=== PATIENT | female | born 1970 | race Caucasian/White ===

== ENCOUNTER 2017-10-18 13:54 | Emergency (ER) | payer BC ==
[2017-10-18 14:05] VITALS: BP 128/81
--- NOTE | 2017-10-18 14:31 | UC ---
Shoulder Pain HPI - HPI Summary HPI Summary: 47 y/o female presents to the urgent care c/o left shoulder pain w/ a bruise s/ p falling backwards 2 days ago. Pt reports she fell backwards in a screen porch. Pain is 8/10 sharp w/ decrease ROM and posterior side of shoulder w/ a bruise from the porch railing. Pt has taking Ibuprofen/Tylenol PO to alleviate symptoms. LMP:09/18/2017. Pt denies numbness and tingling sensation over the left arm, fever, SOB, cehst pain,abdominal pain, N/V/D. - History of Current Complaint Chief Complaint: UCUpperExtremity Stated Complaint: SHOULDER INJURY Time Seen by Provider: 10/18/17 14:26 Hx Obtained From: Patient Hx Last Menstrual Period: 09/16/17 ?: No - Pt declines prenanacy test Onset/Duration: Sudden Onset, Lasting Days - 4 days, Still Present, Worse Since - yesterday Timing: Constant Severity Initially: Moderate Severity Currently: Moderate Location Of Pain: Is Discrete @ - left shoulder Pain Intensity: 9 Pain Scale Used: 0-10 Numeric Character: Sharp, Throbbing Aggravating Factor(s): Movement, Lifting, Abduction Alleviating Factor(s): Rest, Ice, OTC Meds Associated Signs And Symptoms: Positive: Bruising - posterior shoulder. Negative: Swelling, Numbness/Tingling Related History: Dominant Hand Right - Risk Factors Non-Orthopedic Risk Factor: Negative DVT Risk Factors: Negative Septic Arthritis Risk Factor: Negative - Allergies/Home Medications Allergies/Adverse Reactions: Allergies Allergy/AdvReac Type Severity Reaction Status Date / Time aspirin Allergy Rash Verified 10/18/17 14:06 erythromycin base Allergy Rash Verified 10/18/17 14:06 sulfamethoxazole Allergy Hives Verified 10/18/17 14:06 [From Bactrim] trimethoprim [From Bactrim] Allergy Hives Verified 10/18/17 14:06 PMH/Surg Hx/FS Hx/Imm Hx Previously Healthy: Yes Other Endocrine History: Lupus, RA Cardiovascular History: Cardiac Disease GI/ History: Gastroesophageal Reflux Other History Of: Anticoagulant Therapy - pradexa - Surgical History Surgical History: Yes Surgery Procedure, Year, and Place: Surgery on left ankle ~ 2006 ablasions 2 - Family History Known Family History: Positive: Cardiac Disease - Social History Occupation: Employed Full-time Lives: With Family Alcohol Use: None Substance Use Type: None Smoking Status (MU): Smoker, Current Status Unknown - Immunization History Most Recent Tetanus Shot: July 2011 Review of Systems Constitutional: Negative Skin: Bruising - left shoulder s/p fall Eyes: Negative ENT: Negative Respiratory: Negative Cardiovascular: Negative Gastrointestinal: Negative Genitourinary: Negative Motor: Negative Neurovascular: Negative Musculoskeletal: Decreased ROM - left shoulder, Other: - left shoulder pain Neurological: Negative Psychological: Negative Is Patient Immunocompromised?: No All Other Systems Reviewed And Are Negative: Yes Physical Exam - Summary Physical Exam Summary: Vital Signs Reviewed: Yes GENERAL: Well-Appearing, No Pain Distress, Well-Nourished - female w/o any apparent pain distress Eyes: Positive: Conjunctiva Clear - PERRL,EOMI ENT: Positive: Normal ENT inspection, Hearing grossly normal, Pharyngeal erythema - mild, Nasal drainage - clear, Uvula midline Neck: Positive: Supple, Nontender, No Lymphadenopathy Respiratory: Positive: Chest non-tender, Lungs clear, Normal breath sounds, No respiratory distress Cardiovascular: Positive: RRR, No Murmur, Pulses Normal, Brisk Capillary Refill Abdomen Description: Positive: Nontender, No Organomegaly, Soft. Negative: CVA Tenderness (R), CVA Tenderness (L) Bowel Sounds: Positive: Present Musculoskeletal: LF shoulder: The L shoulder is with/without obvious asymmetry or deformity when compared to the R shoulder. posterior shoulder w/ ecchymosis and bruising, no crepitus. No bony deformity or prominence of humeral head. No erythema, warmth. No Point Tenderness to palpation over the clavicle, or scapula. positive tenderness over Acromioclavicular joint and humeral head with mild swelling, NT to palpation of the bicipital groove . NT to palpation of the muscles of the sternocleidomastoid, pectoralis, biceps/triceps , deltoid, trapezius, . Limited ROM due to pain especially in adduction and abduction.on both passive and active, internal/external rotation, flexion/ extension. "empty can and drop arm test unable to perform due to pain. No axillary tenderness or lymphadenopathy. Normal sensation over the deltoid and fingers. Distal motor and neurovascular status is intact. Neurological Exam: Normal Psychological Exam: Normal Skin Exam: Normal Triage Information Reviewed: Yes Vital Signs: Initial Vital Signs Temp 98 F 10/18/17 14:00 Pulse 63 10/18/17 14:00 Resp 15 10/18/17 14:00 BP 128/81 10/18/17 14:00 Pulse Ox 100 10/18/17 14:00 Shoulder Course/Dx - Course Course Of Treatment: 47 y/o female presents to the urgent care c/o left shoulder pain w/ a bruise s/p falling backwards 2 days ago. Pt reports she fell backwards in a screen porch. Pain is 8/10 sharp w/ decrease ROM and posterior side of shoulder w/ a bruise from the porch railing. Pt has taking Ibuprofen/ Tylenol PO to alleviate symptoms. LMP:09/18/2017. Pt denies numbness and tingling sensation over the left arm, fever, SOB, cehst pain,abdominal pain, N/V /D.Hx obtained.LF shoulder X-ray ordered: Impression: No acute osseous injury observed. Pt advised to continue w/ Tylenol PO to alleviate symptoms. However Pt requests [place] PO for night time so she can sleep. Pt Rx [place] PO for 3 days. LF Shoulder immobilized with a shoulder sling for 3-4 days. Advised to f/ u with Sports Medicine Orthopedic referral for further management. Pt understood and agreed w/ plan of care. - Differential Dx/Diagnosis Differential Diagnosis/HQI/PQRI: Arthritis, Contusion, Fracture (Closed), Rotator Cuff Injury, Sprain, Strain, Tendonitis Provider Diagnoses: 1- Left shoulder sprain s/p fall. 2- Left shoulder hematoma s/p fall Discharge - Sign-Out/Discharge Documenting (check all that apply): Patient Departure - D/c home - Discharge Plan Condition: Stable Disposition: HOME Prescriptions: HYDROcodone/ACETAMIN 5-325 MG* [[place] 5-325 TAB*] 1 tab PO Q6H PRN #12 tab MDD 1g/4hrs-4g/day PRN Reason: Pain Patient Education Materials: Shoulder Sprain (ED), Hematoma (ED) Forms: *Work Release Referrals: [facility] [Provider Group] - 1 Week Akiko Kingston MD [Primary Care Provider] - 3 Days Additional Instructions: 1-Please take medications as directed to alleviate pain and swelling. 2-Please apply ice, keep your shoulder immobilized with the shoulder sling for 3 -4 days and then resume movement slowly 3- Please f/u with Orthopedic DR from Sports medicine or Physical Therapy in 2- 3 days for further evaluation and treatment. - Billing Disposition and Condition Condition: STABLE Disposition: Home
--- NOTE | 2017-10-18 15:14 | RAD ---
Indication: Left shoulder pain. 4 views left shoulder demonstrates no fracture. No other bone or joint abnormality is noted. IMPRESSION: No fracture of the left shoulder is noted.
== END 2017-10-18 15:50 | disposition home or self-care (01) ==
LOC: UCEAST 13:54
DX: S43.402A Unspecified sprain of left shoulder joint, initial encounter (principal); S40.012A Contusion of left shoulder, initial encounter; W18.30XA Fall on same level, unspecified, initial encounter; Y93.9 Activity, unspecified; Y92.008 Other place in unspecified non-institutional (private) residence as the place of occurrence of the external cause; Z88.6 Allergy status to analgesic agent; Z88.1 Allergy status to other antibiotic agents; Z88.2 Allergy status to sulfonamides; F17.200 Nicotine dependence, unspecified, uncomplicated
CPT/HCPCS: 99203; G0463